=== PATIENT | male | born 1955 | race Two or more races ===

== ENCOUNTER → 2017-04-24 | Outpatient (CLI) | payer OTHER ==
[2017-04-24 14:46] LABS: LIPASE 98 IU/L (23-300)
[2017-04-26 08:26] LABS: HEP B CORE IGM ANTIBODY Negative (Negative); HEPATITIS A IGM Negative (Negative); HEPATITIS B SURFACE AG Negative (Negative)
== END ==
LOC: LAB 14:11
PROVIDERS: ATTEND Obstetrics & Gynecology Gynecology
DX: R94.5 Abnormal results of liver function studies (principal)
CPT/HCPCS: 36415; 82150; 83690; 86705; 86709; 86803; 87340